=== PATIENT | male | born 1950 | race Caucasian/White ===

== ENCOUNTER → 2017-01-04 | Outpatient (CLI) | payer OTHER ==
[2017-01-05 09:36] LABS: ESTRADIOL 26.2 pg/mL (7.6-42.6)
== END | disposition home or self-care (01) ==
LOC: RD 08:26
DX: E03.9 Hypothyroidism, unspecified (principal); Z12.5 Encounter for screening for malignant neoplasm of prostate; E29.1 Testicular hypofunction
CPT/HCPCS: 82670; 84402; 84403

== ENCOUNTER 2017-09-30 14:15 | Emergency (ER) | payer OTHER ==
[~2017-09-30] VITALS: Ht 188 cm; Wt 104.3 kg
[2017-09-30 15:29] VITALS: Ht 188 cm; Wt 104.3 kg
[2017-09-30 18:06] LABS: CALCIUM 8.4 mg/dL (8.5-10.1); CARBON DIOXIDE 26.6 mmol/L (21-32); CHLORIDE SERUM 99 mmol/L (98-107); GFR1 > 60 mL/min; GLUCOSE SERUM 96 mg/dL (74-106); POTASSIUM SERUM 3.7 mmol/L (3.5-5.1); SODIUM SERUM 136 mmol/L (136-145)
[2017-09-30 18:11] LABS: ALBUMIN 3.4 g/dL (3.4-5.0); ALKALINE PHOSPHATASE 46 U/L (46-116); ALT/SGPT 98 U/L (16-63); AST/SGOT 42 U/L (15-37); BILIRUBIN TOTAL 0.2 mg/dL (0.20-1.00); TOTAL PROTEIN, SERUM 7.3 g/dL (6.4-8.2)
[2017-09-30 18:12] LABS: BASOPHIL % 0.4 % (0-2); PLATELET COUNT 182 x10^3mcL (130-400); RED CELL DISTRIBUTION WIDTH 13.6 % (11.5-14.5)
[2017-09-30 19:36] VITALS: BP 112/57
== END 2017-09-30 19:36 | disposition home or self-care (01) ==
LOC: ED 14:15
PROVIDERS: Emergency Medicine
DX: M79.1 Myalgia (principal); R05 Cough; R50.9 Fever, unspecified; I11.0 Hypertensive heart disease with heart failure; I50.9 Heart failure, unspecified; M19.90 Unspecified osteoarthritis, unspecified site; T50.B95A Adverse effect of other viral vaccines, initial encounter; Y92.89 Other specified places as the place of occurrence of the external cause
CPT/HCPCS: 36415; 83880; J1885; Q0092

== ENCOUNTER 2020-07-26 10:45 | Emergency (ER) | payer OTHER, SELFPAY ==
[~2020-07-26] VITALS: Ht 188 cm; Wt 105.7 kg
[2020-07-26 10:48] VITALS: BP 133/74; Ht 188 cm; Wt 105.7 kg
== END 2020-07-26 11:40 | disposition home or self-care (01) ==
LOC: ED 10:45
DX: U07.1 COVID-19 (principal); J06.9 Acute upper respiratory infection, unspecified; I11.0 Hypertensive heart disease with heart failure; I50.9 Heart failure, unspecified; E03.9 Hypothyroidism, unspecified
CPT/HCPCS: U0003

== ENCOUNTER 2020-08-05 08:21 | Emergency (ER) | payer OTHER, SELFPAY ==
[2020-08-05 10:03] VITALS: BP 121/81
== END 2020-08-05 10:03 | disposition home or self-care (01) ==
LOC: ED 08:21
DX: U07.1 COVID-19 (principal); I50.9 Heart failure, unspecified; I11.0 Hypertensive heart disease with heart failure; E03.9 Hypothyroidism, unspecified
CPT/HCPCS: Q0092